=== PATIENT | male | born 1940 | race Caucasian/White ===

== ENCOUNTER 2022-01-04 05:56 | Emergency (ER) | payer OTHER ==
[2022-01-04 06:21] VITALS: TEMP 98.3; BMI 22.4
[2022-01-04] MEDS ORDERED: SODIUM CHLORIDE 0.9% 500 ML INFUS.BAG IV ONE (06:23)
[2022-01-04] MEDS ORDERED: ACETAMINOPHEN 1000 MG/100 ML BAG IVPB ONE (06:28)
[2022-01-04] MEDS ORDERED: ACETAMINOPHEN INJECTION 100 ML IVPB ONE (06:45)
[2022-01-04 08:05] LABS: CALCIUM 9.2 mg/dL (8.5-10.1)
[2022-01-04 08:06] LABS: ALBUMIN 3.1 g/dl (3.4-5.0); BLOOD UREA NITROGEN 28.7 mg/dL (7-18)
[2022-01-04 08:09] LABS: BILIRUBIN,TOTAL 0.9 mg/dl (0.2-1); CREATININE 0.5 mg/dl (0.55-1.3); TOT PROT 5.9 g/dl (6.4-8.2)
[2022-01-04 08:19] LABS: BASO % 0.2 % (0-2.0); EOS % 0.2 % (0-4.5); HEMATOCRIT 36.2 % (35.4-49); HEMOGLOBIN 12.2 GM/dL (11.7-16.9); LYMPH % 6.8 % (8-40); MCH 28.8 pg (25.7-33.7); MCHC 33.7 g/dl (32.0-35.9); MEAN CELL VOLUME 85.5 fl (80-96); MEAN PLT VOLUME 8.3 fl (7.5-11.1); MONO % 6.2 % (3.8-10.2); NEUT % 86.6 % (42.8-82.8); PLATELET COUNT 272 10^3/uL (134-434); RBC 4.23 M/mm3 (4.00-5.60); RDW 15.7 % (11.9-15.9); WHITE BLOOD COUNT 12.1 K/mm3 (4.0-10.0)
[2022-01-04] MEDS ORDERED: KETOROLAC TROMETHAMINE 15 MG/ML VIAL IVPUSH ONE (08:37)
[2022-01-04] MEDS ORDERED: KETOROLAC TROMETHAMINE 15 MG/ML VIAL ONE (08:38)
[2022-01-04 08:43] VITALS: BP 139/59; PULSE 50
== END 2022-01-04 09:53 | disposition home or self-care (01) ==
LOC: FER 05:56
PROC: 3E0333Z Introduction of Anti-inflammatory into Peripheral Vein, Percutaneous Approach (ICD-10-PCS; principal; 2022-01-04)
PROC: 3E0333Z Introduction of Anti-inflammatory into Peripheral Vein, Percutaneous Approach (ICD-10-PCS; 2022-01-04)
DX: R51.9 Headache, unspecified (principal)
CPT/HCPCS: 36415; 70450-TC; 71045-TC-FY; 80053; 84436; 84439; 84443; 84479; 85025; 87040; 93005; 96374; 96375; 99285-25